=== PATIENT | female | born 1990 | race Two or more races ===

== ENCOUNTER 2018-03-24 20:56 | Emergency (ER) | payer SELFPAY ==
[~2018-03-24] VITALS: Ht 157.5 cm; Wt 73.3 kg
[2018-03-24 20:58] VITALS: BP 130/83
[2018-03-24] MEDS ORDERED: DEXAMETHASONE 4 MG/ML, 1ML PO ONE (22:00)
[2018-03-24] MEDS ORDERED: ACETAMINOPHEN 500 MG TABLET PO ONE (22:00)
[2018-03-24] MEDS ORDERED: ACETAMINOPHEN 500 MG TABLET ONE (22:03)
[2018-03-24] MEDS ORDERED: DEXAMETHASONE 4 MG TABLET ONE (22:03)
[2018-03-24 22:19] LABS: BASOPHILS # (AUTO) 0.07 x10^3/uL (0-0.1); BASOPHILS % (AUTO) 1 % (0-1); EOSINOPHILS # (AUTO) 0.23 x10^3/uL (0-0.4); EOSINOPHILS % (AUTO) 3 % (1-7); LYMPHOCYTES # (AUTO) 2.68 x10^3/uL (1-3.4); LYMPHOCYTES % (AUTO) 29 % (22-44); MD NO; MEAN CORPUSCULAR HEMOGLOBIN 29.6 pg (27.0-34.8); MEAN CORPUSCULAR HGB CONC 33.5 g/dL (32.4-35.8); MEAN CORPUSCULAR VOLUME 88.4 fL (80-100); MEAN PLATELET VOLUME 8.4 fL (7.4-10.4); MONOCYTES # (AUTO) 0.63 x10^3/uL (0.2-0.8); MONOCYTES % (AUTO) 7 % (2-9); NEUTROPHILS # (AUTO) 5.51 x10^3/uL (1.8-6.8); NEUTROPHILS % (AUTO) 60 % (42-75); PLATELET COUNT 424 x10^3/uL (130-400); RED BLOOD COUNT 4.66 x10^6/uL (3.82-5.3); RED CELL DISTRIBUTION WIDTH 13.9 % (9.6-15.2)
[2018-03-24 22:23] LABS: ALANINE AMINOTRANSFERASE 19 U/L (12-78); ALBUMIN 3.8 g/dL (3.4-5.0); ANION GAP 6 mmol/L (5-15); CALCIUM 9.2 mg/dL (8.5-10.1); CHLORIDE 109 mmol/L (98-107); CREATININE 0.79 mg/dL (0.55-1.02)
[2018-03-24 22:25] LABS: ALKALINE PHOSPHATASE 69 U/L (45-117); BILIRUBIN,TOTAL 0.6 mg/dL (0.2-1.0); TOTAL PROTEIN 7.7 g/dL (6.4-8.2)
== END 2018-03-24 23:51 | disposition home or self-care (01) ==
LOC: ED 23:25
DX: J02.8 Acute pharyngitis due to other specified organisms (principal); H66.91 Otitis media, unspecified, right ear
CPT/HCPCS: 36415; 71046; 80053; 85025; 93005; 99285; J1100

== ENCOUNTER 2019-10-18 02:59 | Emergency (ER) | payer OTHER ==
[~2019-10-18] VITALS: Ht 157.5 cm; Wt 70.5 kg
[~2019-10-18 02:59] MED LIST: NONE PER PT; PROM25TA10 PO
[2019-10-18 03:21] VITALS: BP 112/68
--- NOTE | 2019-10-18 03:21 | NUR ---
THIS IS 29Y F THAT COMES IN WITH C/O DIZZINESS, NAUSEA, VOMITING AND FEELING LIGHT HEADED WHILE AT WORK. PT ALSO STS SHE HAS RIGHT SIDED CP THAT FEELS LIKE PRESSURE RADIATING TO HER JAW. PT STS SHE HAS NO HX OF THIS HAPPENING. PT ALSO STS LMP 09/05/2019 AND HAS IUD WITH NORMAL PERIODS UNTIL THIS POINT. PT CONNECTED TO MONITORING VSS, NADN, PT SPEAKING IN FULL SENTENCES. CALL LIGHT IN REACH
--- NOTE | 2019-10-18 03:34 | NUR ---
PA AT BEDSIDE
[2019-10-18] MEDS ORDERED: ONDANSETRON ODT 4 MG ONE (03:46)
--- NOTE | 2019-10-18 03:50 | NUR ---
PT MEDICATED PER DEC FOR NAUSEA.
[2019-10-18 03:56] LABS: BASOPHILS % (AUTO) 1 % (0-1); EOSINOPHILS # (AUTO) 0.32 x10^3/uL (0-0.4); EOSINOPHILS % (AUTO) 4 % (1-7); LYMPHOCYTES % (AUTO) 22 % (22-44); MD NO; MEAN CORPUSCULAR HEMOGLOBIN 29.8 pg (27.0-34.8); MEAN CORPUSCULAR HGB CONC 33.3 g/dL (32.4-35.8); MEAN CORPUSCULAR VOLUME 89.3 fL (80-100); MEAN PLATELET VOLUME 8.8 fL (7.4-10.4); MONOCYTES # (AUTO) 0.65 x10^3/uL (0.2-0.8); MONOCYTES % (AUTO) 8 % (2-9); NEUTROPHILS # (AUTO) 5.57 x10^3/uL (1.8-6.8); NEUTROPHILS % (AUTO) 65 % (42-75); PLATELET COUNT 374 x10^3/uL (130-400); RED BLOOD COUNT 4.68 x10^6/uL (3.82-5.3); RED CELL DISTRIBUTION WIDTH 13.6 % (9.6-15.2)
[2019-10-18] MEDS ORDERED: ONDANSETRON ODT 4 MG PO ONE (04:00)
[2019-10-18 04:04] LABS: ANION GAP 6 mmol/L (5-15); CALCIUM 9.2 mg/dL (8.5-10.1); CHLORIDE 111 mmol/L (98-107); CREATININE 0.83 mg/dL (0.55-1.02)
[2019-10-18 04:08] LABS: TROPONIN I < 0.015 ng/mL (0.000-0.045)
== END 2019-10-18 05:00 | disposition home or self-care (01) ==
LOC: ED 04:06
DX: R07.89 Other chest pain (principal); R11.0 Nausea
CPT/HCPCS: 36415; 71045; 80048; 82040; 84484; 84703; 85025; 93005; 99284; Q0162